=== PATIENT | female | born 1995 | race Caucasian/White ===

== ENCOUNTER → 2021-08-14 10:11 | Outpatient (CLI) | payer MEDICAID, SELFPAY ==
[2021-08-14 12:57] LABS: Thyroid Stim Hormone (TSH) 1.42 uIU/mL (0.358-3.74)
[2021-08-15 10:11] LABS: Thyroid Peroxidase AB 131 IU/mL (0-34)
== END ==
PROVIDERS: Referring Provider Internal Medicine Endocrinology, Diabetes & Metabolism; Visit Provider Internal Medicine Endocrinology, Diabetes & Metabolism
DX: E04.9 Nontoxic goiter, unspecified (principal)
CPT/HCPCS: 36415; 84443; 86376